=== PATIENT | male | born 1960 | race African-American/Black ===

== ENCOUNTER 2018-08-24 08:44 | Inpatient (IN) | payer OTHER ==
[2018-08-24 09:52] VITALS: BMI 21.5
--- NOTE | 2018-08-24 10:27 | HP ---
CIWA Score Nausea/Vomitin Muscle Tremors: 2 Anxiety: 2 Agitation: 3 Paroxysmal Sweats: 1-Minimal Palms Moist Orientation: 0-Oriented Tacttile Disturbances: 1-Very Mild Itch/Numbness Auditory Disturbances: 1-Very Mild Visual Disturbances: 0-None Headache: 2-Mild CIWA-Ar Total Score: 14 - Admission Criteria OASAS Guidelines: Admission for Medically Managed Detox: Requires at least one of the followin. CIWA greater than 12 2. Seizures within the past 24 hours 3. Delirium tremens within the past 24 hours 4. Hallucinations within the past 24 hours 5. Acute intervention needed for co occurring medical disorder 6. Acute intervention needed for co occurring psychiatric disorder 7. Severe withdrawal that cannot be handled at a lower level of care (continued vomiting, continued diarrhea, abnormal vital signs) requiring intravenous medication and/or fluids 8. Admission ROS S - HPI Chief Complaint: i need help to stop drinking alcohol,marijuan Allergies/Adverse Reactions: Allergies Allergy/AdvReac Type Severity Reaction Status Date / Time No Known Allergies Allergy Verified 08/24/18 10:27 History of Present Illness: this 57 years old male with alcohol dependence and marijuana dependence seeking detox,withdrawal symptom, last detox [facility] 08/22/18 to 08/23/18 stated has emergency problem in the family not completed history of hypertension,asthma syncope alcohol related last week nicotine dependence 10 cigarette/day,does not want nicotine replacement longest period of sobriety 17 years depression no med insomnia plan for rehab after detox Exam Limitations: No Limitations - Ebola screening Have you traveled outside of the country in the last 21 days: No Have you had contact with anyone from an Ebola affected area: No - Review of Systems Constitutional: Loss of Appetite, Malaise, Night Sweats, Changes in sleep, Weakness, Unintentional Wgt. Loss EENT: reports: Nose Congestion Respiratory: reports: No Symptoms reported, Other (asthma) Cardiac: reports: No Symptoms Reported GI: reports: Nausea, Poor Appetite, Abdominal cramping : reports: No Symptoms Reported Musculoskeletal: reports: Back Pain, Muscle Pain Integumentary: reports: Dryness Neuro: reports: Headache, Tremors Endocrine: reports: No Symptoms Reported Hematology: reports: No Symptoms Reported Psychiatric: reports: No Sypmtoms Reported, Judgement Intact, Mood/Affect Appropiate, Orientated x3, other (insomnia) Patient History - Patient Medical History Hx Anemia: No Hx Asthma: Yes (on albuterol inhaler) Hx Chronic Obstructive Pulmonary Disease (COPD): No Hx Cancer: No Hx Cardiac Disorders: No Hx Congestive Heart Failure: No Hx Hypertension: Yes (on lisinopril 10 mgs po daily) Hx Hypercholesterolemia: No Hx Pacemaker: No HX Cerebrovascular Accident: No Hx Seizures: No Hx Dementia: No Hx Diabetes: No Hx Gastrointestinal Disorders: No Hx Liver Disease: No Hx Genitourinary Disorders: No Hx Sexually Transmitted Disorders: No Hx Renal Disease (ESRD): No Hx Thyroid Disease: No Hx Human Immunodeficiency Virus (HIV): No (last 02/14 negative) Hx Hepatitis C: No Hx Depression: Yes (no medication) Hx Suicide Attempt: No Hx Bipolar Disorder: No Hx Schizophrenia: No Other Medical History: no suicidal,no homicidal,arhtritis of right knee and neck - Patient Surgical History Hx Abdominal Surgery: Yes (lipoma of left abdominal wall at [facility] in 1988 ) Hx Orthopedic Surgery: Yes (fx of right knee pateela at age of 37 at [facility] ) - PPD History Documented Results: Negative w/o proof Implanted On Prior [facility] Admission?: No PPD to be Administered?: Yes - Smoking Cessation Smoking history: Current every day smoker Have you smoked in the past 12 months: Yes Aproximately how many cigarettes per day: 10 Cigars Per Day: 0 Hx Chewing Tobacco Use: No Initiated information on smoking cessation: Yes 'Breaking Loose' booklet given: 08/24/18 - Substance & Tx. History Hx Alcohol Use: Yes Hx Substance Use: Yes Substance Use Type: Alcohol, Cocaine, Marijuana Hx Substance Use Treatment: Yes ([facility] 08/22/18 to 08/13/18 not completed) - Substances abused Alcohol Substance route: Oral Frequency: Daily Amount used: 1/2 pint of vodak/2 of 6 packs of 12 ozs of beer Age of first use: 16 Date of last use: 08/23/18 Cocaine Substance route: Inhalation Frequency: 1-3 times last 30 days Amount used: 40$ Age of first use: 30 Date of last use: 08/14/18 Marijuana/Hashish Substance route: Smoking Frequency: Daily Amount used: 10$ Age of first use: 19 Date of last use: 08/24/18 Family Disease History - Family Disease History Family History: Denies Admission Physical Exam [facility] - Vital Signs Vital Signs: Vital Signs - 24 hr 08/24/18 09:50 Temperature 97.9 F Pulse Rate 99 H Respiratory 18 Rate Blood Pressure 147/92 - Physical General Appearance: Yes: Moderate Distress, Tremorous, Sweating, Anxious HEENTM: Yes: Normal ENT Inspection, MORGAN, Pharynx Normal Respiratory: Yes: Within Normal Limits, Lungs Clear, Normal Breath Sounds Neck: Yes: Within Normal Limits, Supple, Trachea in good position Breast: Yes: Within Normal Limits Cardiology: Yes: Within Normal Limits, Regular Rhythm, Regular Rate, S1, S2 Abdominal: Yes: Within Normal Limits, Normal Bowel Sounds, Non Tender, Flat, Soft, Surgical Scar Genitourinary: Yes: Within Normal Limits Back: Yes: Muscle Spasm Musculoskeletal: Yes: full range of Motion, Back pain, Muscle Pain Extremities: Yes: Tremors Neurological: Yes: disbursement clerk II-XII NML intact, Fully Oriented, Alert, Motor Strength 5/5 Integumentary: Yes: Dry Lymphatic: Yes: Within Normal Limits - Diagnostic (1) Alcohol dependence with uncomplicated withdrawal Current Visit: Yes Status: Acute (2) Cannabis dependence Current Visit: Yes Status: Acute (3) Cocaine abuse Current Visit: Yes Status: Acute (4) Syncope Current Visit: Yes Status: Acute (5) Weight loss Current Visit: Yes Status: Acute (6) Status post right knee surgery Current Visit: Yes Status: Acute (7) Arthritis Current Visit: Yes Status: Acute (8) Insomnia Current Visit: Yes Status: Acute (9) Depression Current Visit: Yes Status: Acute (10) Essential hypertension Current Visit: Yes Status: Acute Cleared for Admission [facility] - Detox or Rehab [facility] Level of Care: Medically Managed Detox Regimen/Protocol: Librium Breathalyzer - Breathalyzer Breathalyzer: 0 Urine Drug Screen - Test Device Lot number: [id number] Expiration date: 03/29/20 - Control Is test valid?: Yes - Results Drug screen NEGATIVE: No Urine drug screen results: THC-Marijuana, BZO-Benzodiazepines Inpatient Rehab Admission - Rehab Decision to Admit Inpatient rehab admission?: No
[2018-08-24] MEDS ORDERED: BISMUTH SUBSALICYLATE 524 MG/30 ML UD PO PRN (10:53)
[2018-08-24] MEDS ORDERED: METHOCARBAMOL 500 MG TABLET PO PRN (10:53)
[2018-08-24] MEDS ORDERED: hydrOXYzine PAMOATE 25 MG CAPSULE (FP) PO PRN (10:53)
[2018-08-24] MEDS ORDERED: chlordiazePOXIDE HCL 25 MG CAPSULE PO PRN (10:53)
[2018-08-24] MEDS ORDERED: MENTHOL/PHENOL 1 EACH UD MM PRN (10:53)
[2018-08-24] MEDS ORDERED: MAG HYDROX/AL HYDROX/SIMETH 30 ML UNIT-DOSE CUP PO PRN (10:53)
[2018-08-24] MEDS ORDERED: ACETAMINOPHEN 325 MG TABLET (FP) PO PRN ×2 (10:53)
[2018-08-24] MEDS ORDERED: IBUPROFEN 400 MG TABLET (FP) PO PRN (10:53)
[2018-08-24] MEDS ORDERED: MELATONIN 5 MG TABLETS PO PRN (10:53)
[2018-08-24] MEDS ORDERED: MAGNESIUM CITRATE 300 ML BOTTLE PO PRN (10:53)
[2018-08-24] MEDS ORDERED: MAGNESIUM HYDROX 2400MG/30ML ORAL SUSPENSION 30 ML CUP PO PRN (10:53)
[2018-08-24] MEDS ORDERED: LISINOPRIL 10 MG TABLET (FP) PO ONE (11:45)
--- NOTE | 2018-08-24 15:17 | EKG ---
Test Reason : Blood Pressure : / mmHG Vent. Rate : 069 BPM Atrial Rate : 069 BPM P-R Int : 124 ms QRS Dur : 102 ms QT Int : 390 ms P-R-T Axes : 073 058 067 degrees QTc Int : 417 ms NORMAL SINUS RHYTHM NONSPECIFIC T WAVE ABNORMALITY ABNORMAL ECG NO PREVIOUS ECGS AVAILABLE Confirmed by BARRON BRADLYE MD ([id number]) on 08/24/2018 3:17:37 PM Referred By: Confirmed By:BARRON BRADLEY MD
[2018-08-24] MEDS: chlordiazePOXIDE HCL 25 MG CAPSULE PO SCH ×2 (17:33→22:46)
[2018-08-24] MEDS ORDERED: THIAMINE HCL 100 MG TABLET (FP) PO SCH (22:00)
[2018-08-25] MEDS: chlordiazePOXIDE HCL 25 MG CAPSULE PO SCH ×2 (06:54→11:00)
[2018-08-25 09:31] VITALS: BP 141/79; PULSE 58; TEMP 97.5
[2018-08-25] MEDS ORDERED: PRENATAL VITAMINS W/ FOLIC ACID TABLET (FP) PO SCH (10:00)
[2018-08-25] MEDS ORDERED: LISINOPRIL 10 MG TABLET (FP) PO SCH (10:00)
--- NOTE | 2018-08-25 10:28 | PN ---
S CIWA - CIWA Score Nausea/Vomitin-No Nausea/No Vomiting Muscle Tremors: 1-None Visible, but [place] Anxiety: 4-Mod. Anxious/Guarded Agitation: 4-Moderately Restless Paroxysmal Sweats: No Perspiration Orientation: 0-Oriented Tacttile Disturbances: 0-None Auditory Disturbances: 0-None Visual Disturbances: 0-None Headache: 3-Moderate CIWA-Ar Total Score: 12 [facility] Progress Note (SOAP) Subjective: PATIENT ANXIOUS, IRRITABLE AND C/O HEADACHE. Objective: 08/25/18 10:26 Vital Signs Temperature 97.5 F L 08/25/18 09:30 Pulse Rate 58 L 08/25/18 09:30 Respiratory Rate 18 08/25/18 09:30 Blood Pressure 141/79 08/25/18 09:30 O2 Sat by Pulse Oximetry (%) PE: ALERT AND ORIENTED X 3 SKIN WARM AND DRY EXT FULL ROM, NO VISIBLE TREMORS AMB AD WU ANXIOUS, RESTLESS Assessment: 08/25/18 10:27 WITHDRAWAL SX Plan: CONTINUE DETOX LABS PENDING ORAL HYDRATION ENCOURAGED.
[2018-08-25 10:50] LABS: HEMATOCRIT 44.7 % (35.4-49); HEMOGLOBIN 14.1 GM/dL (11.7-16.9); MCH 23.2 pg (25.7-33.7); MCHC 31.5 g/dl (32.0-35.9); MEAN CELL VOLUME 73.6 fl (80-96); MEAN PLT VOLUME 9.9 fl (7.5-11.1); PLATELET COUNT 182 K/MM3 (134-434); RBC 6.07 M/mm3 (4.00-5.60); RDW 15.5 % (11.9-15.9); WHITE BLOOD COUNT 5.8 K/mm3 (4.0-10.0)
[2018-08-25 11:08] LABS: ALBUMIN 3.9 g/dl (3.4-5.0); ALK PHOS 95 U/L (45-117); ANION GAP 5 MMOL/L (8-16); BILIRUBIN,TOTAL 0.9 mg/dL (0.2-1); BLOOD UREA NITROGEN 19 mg/dL (7-18); CALCIUM 9.2 mg/dL (8.5-10.1); CHLORIDE 104 mmol/L (98-107); CO2 30 mmol/L (21-32); CREATININE 1.1 mg/dL (0.55-1.3); GLUCOSE,RANDOM 61 mg/dL (74-106); POTASSIUM 4.8 mmol/L (3.5-5.1); SGOT/AST 29 U/L (15-37); SGPT/ALT 33 U/L (13-61); SODIUM 139 mmol/L (136-145); TOT PROT 7.5 g/dl (6.4-8.2)
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
[2018-08-25] MEDS ORDERED: chlordiazePOXIDE HCL 25 MG CAPSULE PO SCH (17:00)
[2018-08-26] MEDS ORDERED: chlordiazePOXIDE HCL 10 MG CAPSULE PO SCH (17:00)
[2018-08-26] MEDS ORDERED: chlordiazePOXIDE HCL 10 MG CAPSULE PO PRN (17:00)
[2018-08-27] MEDS ORDERED: chlordiazePOXIDE HCL 10 MG CAPSULE PO SCH (17:00)
== END 2018-08-25 11:54 | disposition left against medical advice (07) | DRG 774 ==
LOC: YASAS 08:44 → Y6N 11:23
PROVIDERS: ADMIT Surgery; ATTEND Surgery
PROC: HZ2ZZZZ Detoxification Services for Substance Abuse Treatment (ICD-10-PCS; principal; 2018-08-24)
DX: F10.230 Alcohol dependence with withdrawal, uncomplicated (principal); F14.10 Cocaine abuse, uncomplicated; F12.20 Cannabis dependence, uncomplicated; F17.213 Nicotine dependence, cigarettes, with withdrawal; F32.9 Major depressive disorder, single episode, unspecified; I10 Essential (primary) hypertension; G47.00 Insomnia, unspecified; J45.909 Unspecified asthma, uncomplicated; M12.9 Arthropathy, unspecified; R55 Syncope and collapse; R63.4 Abnormal weight loss; Z68.21 Body mass index [BMI] 21.0-21.9, adult; Z98.890 Other specified postprocedural states; F91.8 Other conduct disorders; Z91.19 Patient's noncompliance with other medical treatment and regimen
CPT/HCPCS: 36415; 80053; 85027; 86593; 93005; 93010

== ENCOUNTER 2019-01-02 12:02 | Inpatient (IN) | payer OTHER ==
[2019-01-02 14:53] VITALS: BMI 21.7
--- NOTE | 2019-01-02 15:23 | HP ---
CIWA Score Nausea/Vomitin-No Nausea/No Vomiting Muscle Tremors: 3 Anxiety: 3 Agitation: 4-Moderately Restless Paroxysmal Sweats: 3 Orientation: 0-Oriented Tacttile Disturbances: 0-None Auditory Disturbances: 0-None Visual Disturbances: 0-None Headache: 0-None Present CIWA-Ar Total Score: 13 - Admission Criteria OASAS Guidelines: Admission for Medically Managed Detox: Requires at least one of the followin. CIWA greater than 12 2. Seizures within the past 24 hours 3. Delirium tremens within the past 24 hours 4. Hallucinations within the past 24 hours 5. Acute intervention needed for co occurring medical disorder 6. Acute intervention needed for co occurring psychiatric disorder 7. Severe withdrawal that cannot be handled at a lower level of care (continued vomiting, continued diarrhea, abnormal vital signs) requiring intravenous medication and/or fluids 8. Admission ROS [facility] Chief Complaint: I was cleaned [id number] and now i recently relapsed d/t family issues and started drinking. Allergies/Adverse Reactions: Allergies Allergy/AdvReac Type Severity Reaction Status Date / Time No Known Allergies Allergy Verified 01/02/19 14:38 History of Present Illness: Pt is a 58yrold male with a history of alcohol and cannabis dependence seeking detox for treatment. pt had 18yr of sobriety and recently relapsed. pt states went to [facility] ED because he stated shaking after drinking and needed something to help him with the shakes. Exam Limitations: No Limitations - Ebola screening Have you traveled outside of the country in the last 21 days: No (N) Have you had contact with anyone from an Ebola affected area: No Have you been sick,other than usual withdrawal symptoms: No Do you have a fever: No - Review of Systems Constitutional: Chills, Diaphoresis, Night Sweats, Changes in sleep, Unintentional Wgt. Loss EENT: reports: Tearing, Nose Congestion Respiratory: reports: No Symptoms reported Cardiac: reports: No Symptoms Reported GI: reports: Diarrhea, Poor Fluid Intake : reports: No Symptoms Reported Musculoskeletal: reports: No Symptoms Reported Integumentary: reports: Flushing Neuro: reports: Headache, Tingling, Tremors Endocrine: reports: Excessive Sweating, Flushing, Intolerance to Cold, Intolerance to Heat Hematology: reports: No Symptoms Reported Psychiatric: reports: Judgement Intact, Mood/Affect Appropiate, Orientated x3, Agitated, Anxious Other Systems: Reviewed and Negative Patient History - Patient Medical History Hx Anemia: No Hx Asthma: Yes (on albuterol inhaler) Hx Chronic Obstructive Pulmonary Disease (COPD): No Hx Cancer: No Hx Cardiac Disorders: No Hx Congestive Heart Failure: No Hx Hypertension: Yes (on lisinopril 10 mgs po daily) Hx Hypercholesterolemia: No Hx Pacemaker: No HX Cerebrovascular Accident: No Hx Seizures: No Hx Dementia: No Hx Diabetes: No Hx Gastrointestinal Disorders: No Hx Liver Disease: No Hx Genitourinary Disorders: No Hx Sexually Transmitted Disorders: No Hx Renal Disease (ESRD): No Hx Thyroid Disease: No Hx Human Immunodeficiency Virus (HIV): No (last 02/14 negative) Hx Hepatitis C: No (negative) Hx Depression: Yes (no medication) Hx Suicide Attempt: No Hx Bipolar Disorder: No Hx Schizophrenia: No - Patient Surgical History Hx Abdominal Surgery: Yes (lipoma of left abdominal wall at [facility] in 1988 ) Hx Orthopedic Surgery: Yes (fx of right knee pateela at age of 37 at [facility] ) - PPD History Previous Implant?: Yes Documented Results: Negative w/o proof PPD to be Administered?: Yes - Reproductive History Patient is a Female of Child Bearing Age (11 -55 yrs old): No - Smoking Cessation Smoking history: Current every day smoker Have you smoked in the past 12 months: Yes Aproximately how many cigarettes per day: 10 Cigars Per Day: 0 Hx Chewing Tobacco Use: Yes Initiated information on smoking cessation: Yes 'Breaking Loose' booklet given: 01/02/19 - Substance & Tx. History Hx Alcohol Use: Yes Hx Substance Use: Yes Substance Use Type: Alcohol, Marijuana Hx Substance Use Treatment: Yes (last detox 18yrs ago.) - Substances abused Alcohol Substance route: Oral Frequency: Daily Amount used: 6 - 12 ounce beer Age of first use: 16 Date of last use: 01/01/19 Marijuana/Hashish Substance route: Smoking Frequency: Daily Amount used: $30-50/day Age of first use: 19 Date of last use: 01/01/19 Family Disease History - Family Disease History Family History: Denies Admission Physical Exam [facility] - Vital Signs Vital Signs: Vital Signs - 24 hr 01/02/19 01/02/19 14:35 15:00 Temperature 97.0 F L 97.0 F L Pulse Rate 68 68 Respiratory 18 18 Rate Blood Pressure 157/91 157/91 - Physical General Appearance: Yes: Appropriately Dressed, Moderate Distress, Tremorous, Irritable, Sweating, Anxious HEENTM: Yes: Normocephalic, Normal Voice, Nasal Congestion, Rhinorrhea Respiratory: Yes: Lungs Clear, Normal Breath Sounds, No Respiratory Distress Neck: Yes: Within Normal Limits Breast: Yes: Within Normal Limits Cardiology: Yes: Regular Rhythm, Regular Rate, S1, S2 Abdominal: Yes: Normal Bowel Sounds, Soft Genitourinary: Yes: Within Normal Limits Back: Yes: Normal Inspection Musculoskeletal: Yes: full range of Motion Extremities: Yes: Normal Capillary Refill, Normal Inspection, Non-Tender, Tremors Neurological: Yes: Fully Oriented, Alert, Normal Response Integumentary: Yes: Normal Color, Diaphoresis Lymphatic: Yes: Within Normal Limits - Diagnostic (1) Alcohol dependence with uncomplicated withdrawal Current Visit: Yes Status: Chronic (2) Arthritis Current Visit: Yes Status: Acute (3) Cannabis dependence Current Visit: Yes Status: Chronic (4) Depression Current Visit: Yes Status: Chronic Qualifiers: Depression Type: unspecified Qualified Code(s): F32.9 - Major depressive disorder, single episode, unspecified (5) Essential hypertension Current Visit: Yes Status: Chronic (6) Insomnia Current Visit: Yes Status: Chronic Qualifiers: Insomnia type: primary Qualified Code(s): F51.01 - Primary insomnia (7) Status post right knee surgery Current Visit: Yes Status: Chronic (8) Syncope Current Visit: Yes Status: Resolved Qualifiers: Syncope type: unspecified Qualified Code(s): R55 - Syncope and collapse Cleared for Admission [facility] - Detox or Rehab [facility] Level of Care: Medically Managed Detox Regimen/Protocol: Librium Breathalyzer - Breathalyzer Breathalyzer: 0 Urine Drug Screen - Test Device Lot number: [id number] Expiration date: 09/27/20 - Control Is test valid?: Yes - Results Drug screen NEGATIVE: No Urine drug screen results: THC-Marijuana, BZO-Benzodiazepines Inpatient Rehab Admission - Rehab Decision to Admit Inpatient rehab admission?: No
[2019-01-02] MEDS ORDERED: METHOCARBAMOL 500 MG TABLET PO PRN (15:29)
[2019-01-02] MEDS ORDERED: MAGNESIUM CITRATE 300 ML BOTTLE PO PRN (15:29)
[2019-01-02] MEDS ORDERED: MAG HYDROX/AL HYDROX/SIMETH 30 ML UNIT-DOSE CUP PO PRN (15:29)
[2019-01-02] MEDS ORDERED: ONDANSETRON *ODT* 4 MG TABLET SL PRN (15:29)
[2019-01-02] MEDS ORDERED: BISMUTH SUBSALICYLATE 524 MG/30 ML UD PO PRN (15:29)
[2019-01-02] MEDS ORDERED: MAGNESIUM HYDROX 2400MG/30ML ORAL SUSPENSION 30 ML CUP PO PRN (15:29)
[2019-01-02] MEDS ORDERED: DICYCLOMINE HCL 10 MG CAPSULE PO PRN (15:29)
[2019-01-02] MEDS ORDERED: hydrOXYzine PAMOATE 25 MG CAPSULE (FP) PO PRN (15:29)
[2019-01-02] MEDS ORDERED: chlordiazePOXIDE HCL 25 MG CAPSULE PO PRN (15:29)
[2019-01-02] MEDS ORDERED: MELATONIN 5 MG TABLETS PO PRN (15:29)
[2019-01-02] MEDS ORDERED: MENTHOL/PHENOL 1 EACH UD MM PRN (15:29)
[2019-01-02] MEDS ORDERED: ACETAMINOPHEN 325 MG TABLET (FP) PO PRN ×2 (15:29)
[2019-01-02] MEDS ORDERED: IBUPROFEN 400 MG TABLET (FP) PO PRN (15:29)
[2019-01-02] MEDS ORDERED: NICOTINE POLACRILEX 4 MG GUM BUC PRN (15:29)
[2019-01-02] MEDS ORDERED: ALBUTEROL SO4 8 GM HFA INHALER IH PRN (15:31)
[2019-01-02] MEDS: chlordiazePOXIDE HCL 25 MG CAPSULE PO SCH ×2 (16:25→22:09)
[2019-01-02] MEDS: THIAMINE HCL 100 MG TABLET (FP) PO SCH (22:09)
[2019-01-03] MEDS: chlordiazePOXIDE HCL 25 MG CAPSULE PO SCH ×4 (05:53→23:31)
[2019-01-03] MEDS ORDERED: NICOTINE 21 MG/24 HOURS TOPICAL PATCH TD SCH (10:00)
[2019-01-03] MEDS ORDERED: PRENATAL VITAMINS W/ FOLIC ACID TABLET (FP) PO SCH (10:00)
[2019-01-03] MEDS ORDERED: LISINOPRIL 5 MG TABLET (FP) PO SCH (10:00)
--- NOTE | 2019-01-03 11:12 | PN ---
S CIWA - CIWA Score Nausea/Vomitin Muscle Tremors: 2 Anxiety: 2 Agitation: 2 Paroxysmal Sweats: 1-Minimal Palms Moist Orientation: 0-Oriented Tacttile Disturbances: 0-None Auditory Disturbances: 0-None Visual Disturbances: 0-None Headache: 2-Mild CIWA-Ar Total Score: 11 S Progress Note (SOAP) Subjective: alert,irritable,anxious,interrupted sleep,tremor Objective: 01/03/19 11:11 Vital Signs Temperature 98.3 F 01/03/19 09:23 Pulse Rate 75 01/03/19 09:23 Respiratory Rate 18 01/03/19 09:23 Blood Pressure 127/62 01/03/19 09:23 O2 Sat by Pulse Oximetry (%) 01/03/19 11:11 labs pending Assessment: 01/03/19 11:11 withdrawal symptom Plan: continue detox,librium regimen
[2019-01-03 12:00] LABS: HEMATOCRIT 41.2 % (35.4-49); HEMOGLOBIN 13.1 GM/dL (11.7-16.9); MCHC 31.8 g/dl (32.0-35.9); MEAN CELL VOLUME 72.2 fl (80-96); MEAN PLT VOLUME 10.1 fl (7.5-11.1); PLATELET COUNT 160 K/MM3 (134-434); RDW 15.1 % (11.9-15.9); WHITE BLOOD COUNT 3.7 K/mm3 (4.0-10.0)
--- NOTE | 2019-01-03 12:18 | EKG ---
Test Reason : Blood Pressure : / mmHG Vent. Rate : 063 BPM Atrial Rate : 063 BPM P-R Int : 122 ms QRS Dur : 100 ms QT Int : 420 ms P-R-T Axes : 071 060 065 degrees QTc Int : 429 ms NORMAL SINUS RHYTHM WITH SINUS ARRHYTHMIA LEFT ATRIAL ENLARGEMENT WHEN COMPARED WITH ECG OF 24-AUG-2018 10:30, NO SIGNIFICANT CHANGE WAS FOUND Confirmed by FRANKY BAKER MD ([id number]) on 01/03/2019 12:18:19 PM Referred By: Confirmed By:FRANKY BAKER MD
[2019-01-03 12:24] LABS: ALBUMIN 3.5 g/dl (3.4-5.0); BILIRUBIN,TOTAL 0.9 mg/dL (0.2-1); BLOOD UREA NITROGEN 14.4 mg/dL (7-18); CALCIUM 8.5 mg/dL (8.5-10.1); CREATININE 1.1 mg/dL (0.55-1.3); POTASSIUM 3.9 mmol/L (3.5-5.1); TOT PROT 6.3 g/dl (6.4-8.2)
[2019-01-03] MEDS ORDERED: cloNIDine HCL 0.1 MG TABLET PO ONE (12:31)
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
[2019-01-03] MEDS ORDERED: traZODone HCL 50 MG TABLET (FP) PO SCH (22:00)
[2019-01-03] MEDS: THIAMINE HCL 100 MG TABLET (FP) PO SCH (23:31)
[2019-01-04] MEDS ORDERED: chlordiazePOXIDE HCL 25 MG CAPSULE PO SCH (05:00)
[2019-01-04 09:08] VITALS: BP 142/79; PULSE 63; TEMP 98.6
--- NOTE | 2019-01-04 13:31 | DS ---
[facility] Detox Discharge Summary Admission Date: 01/02/19 Discharge Date: 01/04/19 (Left AMA) - History Present History: Alcohol Dependence, Cannabis Dependence Additional Comments: Pt left AMA. Pt did not complete his detox protocol. Pt states, "i have to go and take care of my Kids". An attempt to let pt stay and complete his protocol failed. Pt is encouraged to follow-up with an outpatient CD program and also to follow-up with his PMD. Pt was adamant about the information given. Pertinent Past History: h/o asthma, HTN, alcohol, and cannabis use disorder. - Physical Exam Results Vital Signs: Vital Signs Temperature 98.6 F 01/04/19 09:07 Pulse Rate 63 01/04/19 09:07 Respiratory Rate 18 01/04/19 09:07 Blood Pressure 142/79 01/04/19 09:07 O2 Sat by Pulse Oximetry (%) Vital Signs 01/04/19 01/04/19 06:00 09:07 Temperature 97.5 F L 98.6 F Pulse Rate 50 L 63 Respiratory 18 18 Rate Blood Pressure 134/76 142/79 Lab Results WBC 3.7 K/mm3 (4.0-10.0) L 01/03/19 08:30 RBC 5.70 M/mm3 (4.00-5.60) H 01/03/19 08:30 Hgb 13.1 GM/dL (11.7-16.9) 01/03/19 08:30 Hct 41.2 % (35.4-49) 01/03/19 08:30 MCV 72.2 fl (80-96) L 01/03/19 08:30 MCHC 31.8 g/dl (32.0-35.9) L 01/03/19 08:30 RDW 15.1 % (11.9-15.9) 01/03/19 08:30 Plt Count 160 K/MM3 (134-434) 01/03/19 08:30 Sodium 142 mmol/L (136-145) 01/03/19 08:30 Potassium 3.9 mmol/L (3.5-5.1) 01/03/19 08:30 Chloride 105 mmol/L (98-107) 01/03/19 08:30 Carbon Dioxide 28 mmol/L (21-32) 01/03/19 08:30 Anion Gap 9 MMOL/L (8-16) 01/03/19 08:30 BUN 14.4 mg/dL (7-18) 01/03/19 08:30 Creatinine 1.1 mg/dL (0.55-1.3) 01/03/19 08:30 Random Glucose 70 mg/dL (74-106) L 01/03/19 08:30 Calcium 8.5 mg/dL (8.5-10.1) 01/03/19 08:30 Labs noted. Pertinent Admission Physical Exam Findings: withdrawal symptoms. - Treatment Hospital Course: Detox Protocol Followed - Medication Discharge Medications: Ambulatory Orders Albuterol Sulfate Inhaler - [Ventolin Hfa Inhaler -] 2 inh PO Q6H 08/24/18 Lisinopril 10 mg PO DAILY 08/24/18 Escitalopram Oxalate [Lexapro -] 10 mg PO DAILY 01/02/19 traZODone HCL [Trazodone HCl] 50 mg PO HS 01/02/19 - Diagnosis (1) Alcohol dependence with uncomplicated withdrawal Status: Acute (2) Cannabis dependence Status: Acute (3) Arthritis Status: Chronic (4) Bronchial asthma Status: Chronic (5) Essential hypertension Status: Chronic - AMA Did Patient Leave Against Medical Advice: Yes S CIWA - CIWA Score Nausea/Vomitin-No Nausea/No Vomiting Muscle Tremors: None Anxiety: 3 Agitation: 3 Paroxysmal Sweats: 3 Orientation: 0-Oriented Tacttile Disturbances: 0-None Auditory Disturbances: 0-None Visual Disturbances: 0-None Headache: 0-None Present CIWA-Ar Total Score: 9
[2019-01-05] MEDS ORDERED: chlordiazePOXIDE HCL 10 MG CAPSULE PO SCH (05:00)
[2019-01-06] MEDS ORDERED: chlordiazePOXIDE HCL 10 MG CAPSULE PO SCH (05:00)
[2019-01-07] MEDS ORDERED: chlordiazePOXIDE HCL 10 MG CAPSULE PO ONE (05:00)
== END 2019-01-04 09:15 | disposition left against medical advice (07) | DRG 770 ==
LOC: YASAS 12:02 → Y6N 15:40
PROVIDERS: ADMIT Surgery; ATTEND Surgery
PROC: HZ2ZZZZ Detoxification Services for Substance Abuse Treatment (ICD-10-PCS; principal; 2019-01-02)
DX: F10.230 Alcohol dependence with withdrawal, uncomplicated (principal); F12.20 Cannabis dependence, uncomplicated; F17.210 Nicotine dependence, cigarettes, uncomplicated; F33.1 Major depressive disorder, recurrent, moderate; F19.282 Other psychoactive substance dependence with psychoactive substance-induced sleep disorder; I10 Essential (primary) hypertension; M19.90 Unspecified osteoarthritis, unspecified site; J45.909 Unspecified asthma, uncomplicated; G47.00 Insomnia, unspecified
CPT/HCPCS: 36415; 80053; 85027; 86480; 86593; 93005; 93010; J0735